=== PATIENT | female | born 1935 | race Caucasian/White ===

== ENCOUNTER → 2016-08-17 | Outpatient (REF) ==
[2005-09-28 08:30] VITALS: TEMP 97.5
[~2016-08-17] MED LIST: AMBIEN 10MG10 MG PO; CALCIUM 600MG+D1 TAB PO; COZAAR100 MG PO; GLUCOPHAGE500 MG/TAB PO; KLONOPIN 0.5MG0.5 MG PO; NORVASC 5MG5 MG/TAB PO; PROTONIX20 MG PO; TESSALON P100 MG/CAP PO; ZANTAC 150MG T150 MG PO; ZITHROMAX Z PA250 MG PO
== END ==
LOC: ZLAB.WCH 20:13
DX: Z01.89 Encounter for other specified special examinations (principal)